=== PATIENT | male | born 1990 | race African-American/Black ===

== ENCOUNTER 2017-07-09 21:35 | Emergency (ER) | payer OTHER ==
[~2017-07-09] VITALS: Ht 162.6 cm; Wt 64.4 kg
[2017-07-09] MEDS ORDERED: TAMIFLU75 MG PO (21:50)
[2017-07-09 22:24] LABS: INFLUENZA B ANTIGEN None Detected (None Detect)
[2017-07-09 22:31] VITALS: BP 128/86
== END 2017-07-09 23:10 | disposition home or self-care (01) ==
LOC: M.ERS 21:35
PROVIDERS: Emergency Medicine
DX: J06.9 Acute upper respiratory infection, unspecified (principal); F10.99 Alcohol use, unspecified with unspecified alcohol-induced disorder